=== PATIENT | female | born 1950 | race Caucasian/White ===

== ENCOUNTER → 2024-03-01 14:14 | Outpatient (REF) | payer MEDICARE, SELFPAY | LOC: HWEVLT 14:14 | PROVIDERS: ATTENDING PHYSICIAN Radiology Vascular & Interventional Radiology | DX: I83.892 Varicose veins of left lower extremity with other complications (principal) | CPT/HCPCS: 93971 ==

== ENCOUNTER → 2024-04-06 12:51 | Outpatient (REF) | payer MEDICARE, SELFPAY | LOC: HWEVLT 12:51 | PROVIDERS: ATTENDING PHYSICIAN Radiology Vascular & Interventional Radiology | DX: I83.892 Varicose veins of left lower extremity with other complications (principal) | CPT/HCPCS: 36471 ==

== ENCOUNTER → 2024-06-22 09:31 | Outpatient (REF) | payer MEDICARE, SELFPAY | LOC: HWEVLT 09:31 | PROVIDERS: ATTENDING PHYSICIAN Radiology Vascular & Interventional Radiology | DX: I83.892 Varicose veins of left lower extremity with other complications (principal) | CPT/HCPCS: 36478; C1769 ==

== ENCOUNTER → 2024-07-05 12:55 | Outpatient (REF) | payer MEDICARE, SELFPAY | LOC: HWEVLT 12:55 | PROVIDERS: ATTENDING PHYSICIAN Radiology Diagnostic Radiology | DX: I83.893 Varicose veins of bilateral lower extremities with other complications (principal) | CPT/HCPCS: 93970 ==

== ENCOUNTER → 2024-08-23 08:11 | Outpatient (REF) | payer MEDICARE, SELFPAY | LOC: HWEVLT 08:11 | PROVIDERS: ATTENDING PHYSICIAN Radiology Diagnostic Radiology | DX: I83.891 Varicose veins of right lower extremity with other complications (principal) | CPT/HCPCS: 36478; C1769 ==

== ENCOUNTER → 2024-09-13 13:35 | Outpatient (REF) | payer MEDICARE, SELFPAY | LOC: HWEVLT 13:35 | PROVIDERS: ATTENDING PHYSICIAN Radiology Diagnostic Radiology | DX: I83.891 Varicose veins of right lower extremity with other complications (principal) | CPT/HCPCS: 93971 ==

== ENCOUNTER → 2025-04-21 09:18 | Outpatient (REF) | payer MEDICARE, SELFPAY | LOC: PAVMRI 09:18 | PROVIDERS: ATTENDING PHYSICIAN Orthopaedic Surgery; FAMILY PHYSICIAN Family Medicine | DX: M25.551 Pain in right hip (principal) | CPT/HCPCS: 73721 ==

== ENCOUNTER → 2025-05-02 08:11 | Outpatient (REF) | payer MEDICARE, SELFPAY | LOC: HWRAD 08:11 | PROVIDERS: ATTENDING PHYSICIAN Obstetrics & Gynecology; FAMILY PHYSICIAN Family Medicine | DX: D25.9 Leiomyoma of uterus, unspecified (principal) | CPT/HCPCS: 76830; 76856 ==